=== PATIENT | male | born 1960 | race Caucasian/White ===

== ENCOUNTER → 2022-01-27 13:10 | Outpatient (CLI) | payer OTHER, SELFPAY ==
--- NOTE | 2022-01-27 13:15 | DI.CT.S_ITS ---
PROCEDURE: CT SINUS SCREEN WO CON INDICATIONS: CHRONIC PANSINUSITIS TECHNIQUE: Noncontrast 3.0 mm axial images acquired from the frontal sinuses to the mid-sella, with coronal and sagittal reformats. For radiation dose reduction, the following was used: automated exposure control, adjustment of mA and/or kV according to patient size. COMPARISON: None. FINDINGS: Image quality: Excellent. Maxillary Sinuses: Mucosal thickening noted along the floor both maxillary sinuses measuring up to 7 mm. Both ostiomeatal complexes are patent. No Miguel Ángel cells Ethmoid Air Cells: Diffuse mucosal thickening without remodeling. Small osteoma noted in the anterior right ethmoid measuring 7 mm Sphenoid Sinuses: No bony remodeling or destruction. Sinuses are relatively clear. Sphenoid ethmoidal recesses are obstructed Frontal Sinuses: Bilateral mucosal thickening obstructs the frontal recesses. No osseous remodeling. Miscellaneous: Visualized intra-orbital contents are normal. No lakshmi bullosa or paradoxical turbinate curvature. No nasal septal deviation. IMPRESSION: Pansinusitis without osseous remodeling Approved by: Ramses Rowland M.D. on 01/27/2022 at 15:35
== END ==
PROVIDERS: PCP Family Medicine; Referring Provider Otolaryngology; Visit Provider Otolaryngology
DX: J32.4 Chronic pansinusitis (principal); J34.89 Other specified disorders of nose and nasal sinuses; G44.89 Other headache syndrome; R09.82 Postnasal drip
CPT/HCPCS: 70486

== ENCOUNTER → 2023-02-12 14:14 | Outpatient (CLI) | payer OTHER, SELFPAY ==
--- NOTE | 2023-02-12 14:18 | DI.RAD.S_ITS ---
PROCEDURE: XR FOOT LT MIN 3V INDICATIONS: Foot pain TECHNIQUE: 3 views of the foot were acquired. COMPARISON: None. FINDINGS: Bones: No fractures or dislocations. No suspicious bony lesions. Soft tissues: No tibiotalar joint effusion. Achilles tendon appears normal. IMPRESSION: No acute bony abnormality Dictated by: Marlon Machado M.D. on 02/12/2023 at 15:06 Approved by: Marlon Machado M.D. on 02/12/2023 at 15:12
== END ==
PROVIDERS: PCP Family Medicine; Referring Provider Family Medicine; Visit Provider Family Medicine
DX: L84 Corns and callosities (principal); M79.672 Pain in left foot
CPT/HCPCS: 73630

== ENCOUNTER → 2023-06-07 | Outpatient (CLI) | payer OTHER, SELFPAY ==
--- NOTE | 2023-06-07 | DI.RAD.S_ITS ---
PROCEDURE: XR KNEE LT 3V INDICATIONS: KNEE PAIN TECHNIQUE: 3 views of the knee were acquired. COMPARISON: None. FINDINGS: Bones: No fractures or dislocations. Rljb-yf-iqwyzewx tricompartmental osteoarthritis is seen more notably in patellofemoral compartment. No significant patellar subluxation. No suspicious bony lesions. Soft tissues: Moderate suprapatellar joint effusion. No suspicious soft tissue calcifications. IMPRESSION: Pdoj-ab-ofbhwakx tricompartmental osteoarthritis and moderate suprapatellar joint effusion. No acute fracture or dislocation. Dictated by: Paresh Kaiser M.D. on 06/07/2023 at 13:30 Approved by: Paresh Kaiser M.D. on 06/07/2023 at 13:30
== END ==
LOC: RAD 09:08
PROVIDERS: PCP Family Medicine; Referring Provider Family Medicine; Visit Provider Family Medicine
DX: M17.12 Unilateral primary osteoarthritis, left knee (principal); M25.462 Effusion, left knee
CPT/HCPCS: 73562

== ENCOUNTER 2024-03-18 08:31 | Day surgery (SDC) | payer OTHER, SELFPAY ==
[2024-03-18] VITALS (11 sets, daily range): BP systolic 81–145; BP diastolic 47–86; PULSE 51–61; RESP 12–22; TEMP 36.2–36.7; O2SAT 95–100; BMI 26.9
--- NOTE | 2024-03-18 09:02 | PM.PREOP ---
Pre-operative Note COVID-19 COVID-19 status: Not tested Interval Note History & Physical reviewed/Exam performed by Physician: Yes Changes to H&P: No ASA Class (for procedural sedation): II
[2024-03-18] MEDS: LACTATED RINGERS 1,000 ML 84 ML IV (09:14)
[2024-03-18] MEDS: CEFAZOLIN 2 GM/100 ML PREMIX 100 ML IV (09:40)
--- NOTE | 2024-03-18 09:54 | SUR.OPER ---
Supine on padded OR bed, head on pillow, arms secured on padded arm boards at <90 degrees abduction, legs uncrossed, safety belt at thigh, tape over blanket over lower legs.
[2024-03-18] MEDS: ACETAMINOPHEN IV 1,000 MG/100 ML VIAL 400 MG IV (09:55)
[2024-03-18] MEDS: BUPIVACAINE 0.5% (PF) 30 ML, EPINEPHrine 0.15 MG INJ (10:12)
--- NOTE | 2024-03-18 10:27 | P.OP_ITS ---
Operative Date/Time/Diagnoses Date of procedure: 03/18/24 Time of procedure: 10: Pre-op diagnosis: Right inguinal hernia Post-op diagnosis: same Procedure & Clinicians Procedure: Open right inguinal hernia repair with mesh Same procedure as scheduled: Yes Surgeon: Danis London Clothing Designer: Calvin Lane Anesthesia Type: General Operative Notes Procedure in detail: Preoperative antibiotic was administered. The patient was brought to the operating room and placed on the table in supine position general anesthesia was induced. The right groin was prepped and draped in the normal fashion and a time-out was performed. Roughly 10 mL of local anesthetic were injected into the skin and subcutaneous adipose tissue over the right groin. A 6 cm incision was made over the right inguinal canal. Dissection was carried down through the subcutaneous adipose tissue. We exposed the external oblique aponeurosis in the direction of the fibers. Additional local was injected deep to the aponeurosis. A 15 blade scalpel was used to brooke the external oblique aponeurosis. Metzenbaum scissors were used to carefully open the aponeurosis in the direction of the fibers taking care not to injure the underlying ilioinguinal nerve which was well seen and protected. We completely exposed the inguinal canal. The cord was dissected free from the inguinal ligament and floor of the inguinal canal and the external oblique aponeurosis was dissected off of the internal oblique taking care not to injure the hypogastric nerve. We encircled the cord with a Mason drain for retraction. There was a small indirect hernia sac that was dissected off the cord structures and reduced back into the abdomen. We then placed a polypropylene mesh against the floor of the inguinal canal. The mesh was secured with multiple interrupted 3-0 Prolene sutures to the pubic tubercle and shelving edge of the inguinal ligament as well as to the conjoint tendon medially. We overlapped the tails to recreate an internal ring and secured the medial tail to the inguinal ligament with additional sutures. We injected some more local into the fatty tissue in the inguinal canal and cord. Finally, we removed the Mason drain and closed the external oblique fascia with a running 3-0 Vicryl suture. Skin was closed with interrupted 3-0 Vicryl dermal sutures and a running 4 Monocryl subcuticular stitch. EBL 5 mL The patient was awakened and brought to recovery room. Post-operative Condition: stable Disposition: PACU
[2024-03-18] MEDS: HYDROMORPHONE 1 MG INJ IV ×2 (10:59→11:06)
[2024-03-18] MEDS: ONDANSETRON 4 MG/2 ML INJ IV (10:59)
[2024-03-18] MEDS: OXYCODONE IR 5 MG TABLET PO (11:03)
== END 2024-03-18 11:40 | disposition home or self-care (01) ==
PROVIDERS: PCP Family Medicine; Referring Provider Surgery; Visit Provider Surgery
PROC: (CPT 49505; principal; 2024-03-18 09:45)
DX: K40.90 Unilateral inguinal hernia, without obstruction or gangrene, not specified as recurrent (principal)
CPT/HCPCS: 49505; J0136; J0171; J0330; J0690; J1100; J1170; J1885; J2250; J2405; J2704; J3010

== ENCOUNTER → 2025-04-08 14:13 | Outpatient (CLI) | payer BC, SELFPAY ==
--- NOTE | 2025-04-08 14:16 | DI.NM.S_ITS ---
PROCEDURE: NM ABDULKADIR PERF SPECT R&S PHARM Rest and pharmacological stress myocardial perfusion SPECT with gated imaging and ejection fraction RADIOPHARMACEUTICAL: 25.5 mCi Tc-99m tetrafosmin IV at rest and 27 mCi Tc-99m tetrafosmin IV at peak effect of pharmacological stress. Wqj-uzw-qbwrjkso was performed. INDICATIONS: Abnormal resting EKG consistent w/ ischemia orLBBB TECHNIQUE: Radiopharmaceutical was injected at peak stress test, and also at rest. SPECT images were obtained. SPECT myocardial perfusion images were displayed in short axis, horizontal long axis, and vertical long axis views. Gated images were reviewed using [employer] software. COMPARISON: None. CARDIAC STRESS: A pharmacologic stress test was performed under the supervision of an attending staff, using an infusion of regadenoson 0.4 mg IV . Hemodynamic data: There is normal blood pressure and heart rate response to pharmacologic stress. Symptoms: The patient denied anginal chest pain. EKG: No diagnostic changes of ischemia; no ectopy. FINDINGS: Raw data: There is good myocardial uptake of radiotracer. No significant motion artifacts. Zevc-zy-bhirw ratio is 0.29 (normal is less than 0.38 for tetrafosmin tracer). Left ventricle function: Gated images demonstrate hypokinesis of the inferior and inferoseptal haynes. No transient ischemic dilation; TID is 1.06 (normal less than 1.3). Left ventricle resting end diastolic volume is 272 mL. Left ventricle stress ejection fraction is 59% by calculation but visually 40%; normal range is above 45%. Myocardial perfusion: There is a large size, moderate intensity fixed inferior and inferoseptal wall defect. No reversible perfusion defects. IMPRESSION: Abnormal study. There is a large size, moderate intensity fixed inferior and inferoseptal wall defect with associated hypokinesis of the same haynes consistent with prior infarct. No reversible perfusion defects. Dilated LV with a calculated EF of 59%, but visual estimation is closer to 40%. Dictated by: Carly Traylor D.O. on 04/21/2025 at 17:10 Approved by: Carly Traylor D.O. on 04/21/2025 at 17:23
== END ==
LOC: NUCM 14:15
PROVIDERS: PCP Family Medicine; Referring Provider Internal Medicine Cardiovascular Disease; Visit Provider Internal Medicine Cardiovascular Disease
DX: I48.91 Unspecified atrial fibrillation (principal); I25.10 Atherosclerotic heart disease of native coronary artery without angina pectoris; R94.31 Abnormal electrocardiogram [ECG] [EKG]; R94.39 Abnormal result of other cardiovascular function study
CPT/HCPCS: 78452; 93017; A9502; J2785